=== PATIENT | female | born 1965 | race Caucasian/White ===

== ENCOUNTER 2018-03-25 08:47 | Emergency (ER) | payer OTHER ==
[~2018-03-25] VITALS: Ht 172.7 cm; Wt 66.2 kg
--- NOTE | 2018-03-25 10:14 | ED GI/GU/ABDOMINAL COMPLAINT ---
History of Present Illness General Chief Complaint: Abdominal Pain/Flank Pain Stated Complaint: ABD PAIN Source: patient Exam Limitations: no limitations Vital Signs & Intake/Output Vital Signs & Intake/Output ED Intake and Output 03/26 0000 03/25 1200 Intake Total 1000 Output Total Balance 1000 Intake, IV 1000 Patient 146 lb Weight Weight Reported by Patient Measurement Method Allergies Coded Allergies: Penicillins (RASH 03/25/18) diphenhydramine (From BENADRYL) (UNKNOWN 03/25/18) niacin (FLUSHING 03/25/18) Reconcile Medications Alprazolam 0.5 MG TABLET 1 TAB PO TIDPRN PRN ANXIETY (Reported) Ergocalciferol (Vitamin D2) (Vitamin D2) 50,000 UNIT CAPSULE 1 CAP PO QW VITAMIN SUPPORT (Reported) Estradiol 2 MG TABLET 1 TAB PO DAILY HORMONE (Reported) Fluticasone/Vilanterol (Breo Ellipta 100-25 Mcg INH) 100 MCG-25 MCG/DOSE BLST.W.DEV 1 PUFF PO DAILY BREATHING PROBLEMS (Reported) Levothyroxine Sodium (Synthroid) 25 MCG TABLET 1 TAB PO DAILY AC THYROID ( Reported) Lisdexamfetamine Dimesylate (Vyvanse) 20 MG CAPSULE 1 TAB PO BID MENTAL HEALTH (Reported) Omeprazole 40 MG CAPSULE.DR 1 CAP PO DAILY GI (Reported) Oxycodone HCl/Acetaminophen (Oxycodone-Acetaminophen 10-325) 10 MG-325 MG TABLET 1 TAB PO Q4P PRN PAIN (Reported) Trazodone HCl 50 MG TABLET 1 TAB PO QPM SLEEP (Reported) Triage Note: PT TO ED C/O LOWER ABD PAIN SINCE YESTERDAY. PAIN TODAY IS MORE RLQ THAN LLQ. VOMITED X 1 THIS AM. C/O DIARRHEA. DENIES S/S. Triage Nurses Notes Reviewed? yes ? n Is pt currently ? No Onset: Gradual Duration: day(s): Timing: recent history Quality/Severity: sharpness Severity Numbers: 10 Location: right lower quadrant HPI: 53-year-old female with history of diverticulitis presents emergency department complaining of right lower quadrant abdominal pain beginning yesterday. She states the pain is gradually increasing since yesterday, pain started in LLQ yesterday and migrated to RLQ last night. This morning patient woke up around 3 AM with worsening and severe abdominal pain. Currently abdominal pain described as sharp, 10/10, radiating towards the rectum. Patient also had one episode of nonbilious, nonbloody vomiting and nonbloody diarrhea this morning. Patient ate eggs last night, she has had no appetite today. Patient feels chills however denies fevers. (Ruth Long) Past History Travel History Traveled to [place] past 21 day No Medical History Any Pertinent Medical History? 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 No (Ruth Long) Review of Systems Review of Systems Constitutional: Reports: no symptoms. EENTM: Reports: no symptoms. Respiratory: Reports: no symptoms. Cardiovascular: Reports: no symptoms. GI: Reports: see HPI. Genitourinary: Reports: no symptoms. Musculoskeletal: Reports: no symptoms. Skin: Reports: no symptoms. Neurological/Psychological: Reports: no symptoms. Hematologic/Endocrine: Reports: no symptoms. Immunologic/Allergic: Reports: no symptoms. All Other Systems: Reviewed and Negative (Ruth Long) Physical Exam Physical Exam General Appearance: well developed/nourished, no apparent distress, alert, awake Head: atraumatic, normal appearance Eyes: Bilateral: normal appearance. Ears, Nose, Throat, Mouth: hearing grossly normal Neck: normal inspection, supple, full range of motion Respiratory: normal breath sounds, no respiratory distress, lungs clear Cardiovascular: regular rate/rhythm Gastrointestinal: normal bowel sounds, soft, no organomegaly, Right lower quadrant tenderness with rebound and guarding, left lower quadrant tenderness Back: normal inspection, normal range of motion Extremities: normal range of motion Neurologic/Psych: awake, alert, oriented x 3 Skin: intact, normal color, warm/dry Core Measures ACS in differential dx? No Sepsis Present: No Sepsis Focused Exam Completed? No (Ruth Long) Progress Differential Diagnosis: appendicitis, bowel obstruction, diverticulitis, gastritis, inflamm bowel dis, pancreatitis, SBO, UTI/pyelo Plan of Care: Orders Procedure Date/time Status URINALYSIS 03/25 1014 Complete HIGH SENSITIVITY CRP 03/25 101 Complete COMPREHENSIVE METABOLIC PANEL 03/25 101 Complete CBC WITHOUT DIFFERENTIAL 03/25 101 Complete Laboratory Tests 03/25/18 1150: Urine Color YEL, Urine Clarity CLEAR, Urine pH 6.0, Ur Specific [place] 1.015, Urine Protein NEG, Urine Ketones NEG, Urine Nitrite NEG, Urine Bilirubin NEG, Urine Urobilinogen 0.2, Ur Leukocyte Esterase NEG, Ur Microscopic EXAM NOT REQUIRED, Urine Hemoglobin NEG, Urine Glucose NEG 03/25/18 1028: Anion Gap 7, Estimated GFR > 60, BUN/Creatinine Ratio 18.6, Glucose 94, Calcium 9.6, Total Bilirubin 0.3, AST 18, ALT 27, Alkaline Phosphatase 84, C-React Prot High Sens 1.0, Total Protein 6.7, Albumin 3.8, Globulin 2.9, Albumin/Globulin Ratio 1.3, CBC w Diff NO MAN DIFF REQ, RBC 4.33, MCV 90.2, MCH 30.9, MCHC 34.2, RDW 14.7 H, MPV 7.6, Gran % 68.4, Lymphocytes % 23.0, Monocytes % 5.5, Eosinophils % 2.6, Basophils % 0.5, Absolute Granulocytes 4.7, Absolute Lymphocytes 1.6, Absolute Monocytes 0.4, Absolute Eosinophils 0.2, Absolute Basophils 0 CT scan does not visualize the appendix however no inflammatory findings. Patient's labs are stable, no leukocytosis, no elevated CRP. On repeat abdominal exam the patient still has right lower quadrant tenderness. Given these findings with appendix not visualized on CT scan will obtain surgical consult. 2:09PM - spoke with Dr. Nguyen regarding this patient. I informed Dr. Han of the patient's physical exam findings and that her appendix was not visualized on CT scan. He states that it is very unlikely for appendicitis given her labs and vital signs however will have surgical PA evaluate the patient. The patient was seen and evaluated by surgical PA Nallely. Patient given the option to stay for observation given her abdominal pain however she states she would prefer to go home and follow up with her GI doctor tomorrow. The patient was given strict return precautions which she understands and agrees with. She was offered nausea and pain medications to calm with however she declines. Patient is nontoxic appearing, afebrile. The patient agrees with the plan of care. Dr. Andujar agrees with this plan. Diagnostic Imaging: Viewed by Me: CT Scan. Discussed w/RAD: CT Scan. Radiology Impression: PATIENT: KALYAN OROSCO PRESENT AGE: 53 PATIENT ACCOUNT NO: [id number] : 63 LOCATION: [facility] ORDERING PHYSICIAN: Ruth VELAZQUEZ SERVICE DATE: 03/25/18 EXAM TYPE: CAT - CT ABD & PELVIS W IV CONTRAST EXAMINATION: CT ABDOMEN AND PELVIS WITH CONTRAST CLINICAL INFORMATION: Right lower quadrant abdominal pain. Nausea and vomiting. COMPARISON: CT enterography of 06/18/2017, CT abdomen and pelvis of 08/08/2014, 03/22/2011, 02/21/2011. TECHNIQUE: Multidetector volumetric imaging was performed of the abdomen and pelvis following IV administration of 95 mL of Optiray 320 intravenous contrast. Sagittal and coronal reformatted images were obtained on the technologist's workstation. DLP: 279.53 mGy-cm. FINDINGS: LUNG BASES: An ill-defined ground-glass opacity is noted at the left lung base in the lower lobe anteriorly measuring 1.5 cm in maximum dimension, (series 3 image 12/ [id number]), does not appear to be significantly changed compared to multiple previous studies dated back to 10/08/2010. No pericardial or pleural effusions. LIVER, GALLBLADDER, AND BILIARY TREE: The liver is normal in size, shape, and attenuation. No focal hepatic lesion or biliary ductal dilatation is present. The gallbladder is surgically absent. PANCREAS: Unremarkable. SPLEEN: Unremarkable. ADRENAL GLANDS: Unremarkable. KIDNEYS AND URETERS: The kidneys are normal in size, shape, and attenuation. No hydronephrosis, hydroureter, or calculi seen. No perinephric stranding. BLADDER: Unremarkable. GASTROINTESTINAL TRACT: Postsurgical changes of gastric bypass are seen with gastrojejunostomy and jejunojejunostomy. Additionally, gastric lap band is also in place, similar in position compared to previous study with intact-appearing connecting tubing and port in the subcutaneous tissue of the mid anterior abdominal wall. The stomach is largely decompressed. Small bowel is not dilated. An appendix is not identified; however, there are no inflammatory changes in the expected location of the appendix. The colon is normal in caliber. There is mild diverticulosis of the sigmoid colon and distal descending colon; however, no evidence of acute diverticulitis. No evidence of from chronic wall thickening or pericolonic fat stranding. PERITONEAL CAVITY: No evidence of free intraperitoneal air. Trace free fluid in the pelvis is nonspecific. ABDOMINAL WALL: Gastric lap band port in the subcutaneous tissue of the mid anterior abdominal wall LYMPH NODES: No pathologically enlarged lymph nodes. VASCULAR: Unremarkable. PELVIC VISCERA: The uterus is surgically absent. No adnexal mass. OSSEOUS STRUCTURES: Stable. No acute or suspicious osseous abnormality. Stable moderate anterior wedge compression of T10. Mild degenerative changes are noted in the visualized spine. Stable grade 1 anterolisthesis of L4 over L5. Facet arthropathy at L4-L5 and L5- S1. IMPRESSION: 1. An appendix is not visualized; however, there are no inflammatory changes in the expected location of the appendix. 2. No CT evidence of colitis or acute diverticulitis. 3. Stable postsurgical changes of gastric bypass and gastric lap band placement. 4. No acute or other significant abnormality is identified on this study to explain patient's symptoms. DICTATED BY: Jalen Arce MD DATE/TIME DICTATED:03/25/181223 SPEED BELT SANDER:NANCY DATE/TIME TRANSCRIBED:03/25/181223 CONFIDENTIAL, DO NOT COPY WITHOUT APPROPRIATE AUTHORIZATION. <Electronically signed in Other Vendor System> SIGNED BY: Jalen Arce MD 03/25/18 1250 Initial ED EKG: none (Brandy VELAZQUEZ,Ruth Zarate) Departure Departure Disposition: HOME OR SELF CARE Condition: Stable Clinical Impression Primary Impression: Abdominal pain Qualifiers: Abdominal location: right lower quadrant Qualified Code: R10.31 - Right lower quadrant pain Secondary Impressions: Nausea & vomiting Qualifiers: Vomiting type: unspecified Vomiting Intractability: non-intractable Qualified Code: R11.2 - Nausea with vomiting, unspecified Referrals: Main Santiago MD (PCP/Family) Additional Instructions: Follow-up with Dr. Alegre tomorrow. Return if you have worsening symptoms or concerns. Please note that there might be incidental findings in your evaluation that are unrelated to the current emergency department visit. Please notify your primary care doctor about this emergency department visit in order to obtain and review all of the testing performed so that these incidental findings can be monitored as needed. If you had an x-ray performed, please understand that some fractures may not be seen on the initial set of x-rays. If your symptoms persist you might need a repeat set of x-rays to check for such a fracture. If you had a laceration evaluated, please understand that foreign bodies such as glass or wood may not be visible to the naked eye or on plain x-rays. If the wound becomes red, swollen, increasingly more painful or if there is any drainage from the wound, please have it reevaluated by a physician for the possibility of a retained foreign body. If you're unable to follow up as outlined in the discharge instructions please return to the emergency department. Thank you for choosing the [facility] Emergency Department for your care. It was a pleasure to serve you today. Departure Forms: Customer Survey General Discharge Information (Brandy VELAZQUEZ,Ruth Zarate) PA/GLOVE PARTS INSPECTOR Co-Sign Statement Statement: ED Attending supervision documentation- I saw and evaluated the patient. I have also reviewed all the pertinent lab results and diagnostic results. I agree with the findings and the plan of care as documented in the PA's/GLOVE PARTS INSPECTOR's documentation. x I have reviewed the ED Record and agree with the PA's/GLOVE PARTS INSPECTOR's documentation. [] Additions or exceptions (if any) to the PAs/GLOVE PARTS INSPECTOR's note and plan are summarized below: [] (Pratima SAEZ,Gerber)
[2018-03-25 10:46] LABS: ABSOLUTE BASOPHIL COUNT 0 /CUMM (0.0-0.2); ABSOLUTE EOSINOPHIL COUNT 0.2 /CUMM (0.0-0.7); ABSOLUTE GRANULOCYTE CT 4.7 /CUMM (1.4-6.5); ABSOLUTE LYMPH COUNT 1.6 /CUMM (1.2-3.4); ABSOLUTE MONOCYTE COUNT 0.4 /CUMM (0.10-0.60); BASOPHIL % 0.5 % (0.0-2.0); EOSINOPHIL % 2.6 % (0-5); GRANULOCYTE % 68.4 % (42.2-75.2); HEMATOCRIT 39.1 % (37-47); MEAN CORPUSCULAR HGB 30.9 PG (27.0-31.0); MEAN CORPUSCULAR HGB CONC 34.2 G/DL (33.0-37.0); MEAN CORPUSCULAR VOLUME 90.2 FL (81.0-99.0); MEAN PLATELET VOLUME 7.6 FL (7.4-10.4); PLATELET COUNT 288 /CUMM (130-400); RBC DISTRIBUTION WIDTH 14.7 % (11.5-14.5); RED BLOOD CELL CT 4.33 /CUMM (4.20-5.40); WHITE BLOOD CELL COUNT 6.9 /CUMM (4.8-10.8)
[2018-03-25] MEDS ORDERED: OXYCODONE-ACET1 EAC1 PO (11:23)
[2018-03-25] MEDS ORDERED: ALPRAZOLAM0.5 M4 PO (11:23)
[2018-03-25] MEDS ORDERED: VYVANSE20 M1 PO (11:24)
[2018-03-25] MEDS ORDERED: OMEPRAZOLE40 M1 PO (11:24)
[2018-03-25] MEDS ORDERED: ESTRADIOL2 M1 PO (11:24)
[2018-03-25] MEDS ORDERED: VITAMIN D250000 UNIT PO (11:25)
[2018-03-25] MEDS ORDERED: SYNTHROID25 MCG PO (11:25)
[2018-03-25] MEDS ORDERED: TRAZODONE HCL50 M1 PO (11:26)
[2018-03-25] MEDS ORDERED: BREO ELLIPTA 11 EACH PO (11:26)
--- NOTE | 2018-03-25 12:55 | CT SCAN REPORT ---
EXAMINATION: CT ABDOMEN AND PELVIS WITH CONTRAST CLINICAL INFORMATION: Right lower quadrant abdominal pain. Nausea and vomiting. COMPARISON: CT enterography of 06/18/2017, CT abdomen and pelvis of 08/08/2014, 03/22/2011, 02/21/2011. TECHNIQUE: Multidetector volumetric imaging was performed of the abdomen and pelvis following IV administration of 95 mL of Optiray 320 intravenous contrast. Sagittal and coronal reformatted images were obtained on the technologist's workstation. DLP: 279.53 mGy-cm. FINDINGS: LUNG BASES: An ill-defined ground-glass opacity is noted at the left lung base in the lower lobe anteriorly measuring 1.5 cm in maximum dimension, (series 3 image 12/696), does not appear to be significantly changed compared to multiple previous studies dated back to 10/08/2010. No pericardial or pleural effusions. LIVER, GALLBLADDER, AND BILIARY TREE: The liver is normal in size, shape, and attenuation. No focal hepatic lesion or biliary ductal dilatation is present. The gallbladder is surgically absent. PANCREAS: Unremarkable. SPLEEN: Unremarkable. ADRENAL GLANDS: Unremarkable. KIDNEYS AND URETERS: The kidneys are normal in size, shape, and attenuation. No hydronephrosis, hydroureter, or calculi seen. No perinephric stranding. BLADDER: Unremarkable. GASTROINTESTINAL TRACT: Postsurgical changes of gastric bypass are seen with gastrojejunostomy and jejunojejunostomy. Additionally, gastric lap band is also in place, similar in position compared to previous study with intact-appearing connecting tubing and port in the subcutaneous tissue of the mid anterior abdominal wall. The stomach is largely decompressed. Small bowel is not dilated. An appendix is not identified; however, there are no inflammatory changes in the expected location of the appendix. The colon is normal in caliber. There is mild diverticulosis of the sigmoid colon and distal descending colon; however, no evidence of acute diverticulitis. No evidence of from chronic wall thickening or pericolonic fat stranding. PERITONEAL CAVITY: No evidence of free intraperitoneal air. Trace free fluid in the pelvis is nonspecific. ABDOMINAL WALL: Gastric lap band port in the subcutaneous tissue of the mid anterior abdominal wall LYMPH NODES: No pathologically enlarged lymph nodes. VASCULAR: Unremarkable. PELVIC VISCERA: The uterus is surgically absent. No adnexal mass. OSSEOUS STRUCTURES: Stable. No acute or suspicious osseous abnormality. Stable moderate anterior wedge compression of T10. Mild degenerative changes are noted in the visualized spine. Stable grade 1 anterolisthesis of L4 over L5. Facet arthropathy at L4-L5 and L5-S1. IMPRESSION: 1. An appendix is not visualized; however, there are no inflammatory changes in the expected location of the appendix. 2. No CT evidence of colitis or acute diverticulitis. 3. Stable postsurgical changes of gastric bypass and gastric lap band placement. 4. No acute or other significant abnormality is identified on this study to explain patient's symptoms.
[2018-03-25 13:17] VITALS: BP 124/70
--- NOTE | 2018-03-25 15:29 | Cons- General Surgery ---
Nallely Dill 03/25/18 1511: General Information and HPI Consulting Request Date of Consult: 03/25/18 Requested By: wade VELAZQUEZ Reason for Consult: abd pain for possible appendicitis Source of Information: patient Exam Limitations: no limitations History of Present Illness: 53yo F with hx of IBS, gastric bypass and then lap band presents to ED this morning after starrting with sharp LLQ abdominal pain that started yesterday midday while she was at work. Pain eventually moved to the RLQ over the night. She had decreeased appetite. Denies fevers/chills. This morning pt had one episode on vomiting and diarrhea, greasy appearence, non-bloody. Denies nausea now. Denies Cp/SOB Pt is followed by Dr. Ortiz for her IBS She has previsously had a cholecystectomy, hystorectomy and oophorectomy Allergies/Medications Allergies: Coded Allergies: Penicillins (RASH 03/25/18) diphenhydramine (From BENADRYL) (UNKNOWN 03/25/18) niacin (FLUSHING 03/25/18) Home Med List: Alprazolam 0.5 MG TABLET 1 TAB PO TIDPRN PRN ANXIETY (Reported) Ergocalciferol (Vitamin D2) (Vitamin D2) 50,000 UNIT CAPSULE 1 CAP PO QW VITAMIN SUPPORT (Reported) Estradiol 2 MG TABLET 1 TAB PO DAILY HORMONE (Reported) Fluticasone/Vilanterol (Breo Ellipta 100-25 Mcg INH) 100 MCG-25 MCG/DOSE BLST.W.DEV 1 PUFF PO DAILY BREATHING PROBLEMS (Reported) Levothyroxine Sodium (Synthroid) 25 MCG TABLET 1 TAB PO DAILY AC THYROID ( Reported) Lisdexamfetamine Dimesylate (Vyvanse) 20 MG CAPSULE 1 TAB PO BID MENTAL HEALTH (Reported) Omeprazole 40 MG CAPSULE. 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 Surgical History Pertinent Surgical History: cholecystectomy, hysterectomy, LAP BAND, gastric bypass, oophorectomy Psychosocial History ETOH Use: occasional use Illicit Drug Use: denies illicit drug use Review of Systems Review of Systems: as per HPI Exam & Diagnostic Data Vital Signs and I&O Vital Signs Date Time Temp Pulse Resp B/P B/P Pulse O2 O2 Flow FiO2 Mean Ox Delivery Rate 03/25 1317 98.2 74 18 124/70 99 Room Air 03/25 1048 98.4 70 18 125/82 100 03/25 1037 98 Room Air 03/25 0851 96.4 84 20 159/102 96 Room Air Intake & Output 03/25 1600 03/25 0800 03/25 0000 03/24 1600 03/24 0800 03/24 0000 Intake Total 1000 Output Total Balance 1000 Intake, IV 1000 Patient 146 lb Weight Weight Reported by Patient Measurement Method Physical Exam: gen- NAD resp- clear cardiac- RRR abd- ND, +BS, soft, mildly tender in RLQ. port felt in epigastric area. no gaurding or rebound. +psoas sigh Last 24 Hours of Labs: Laboratory Tests 03/25 03/25 1150 1028 Chemistry Sodium (137 - 145 mmol/L) 140 Potassium (3.5 - 5.1 mmol/L) 4.9 Chloride (98 - 107 mmol/L) 105 Carbon Dioxide (22 - 30 mmol/L) 27 Anion Gap (5 - 16) 7 BUN (7 - 17 mg/dL) 13 Creatinine (0.5 - 1.0 mg/dL) 0.7 Estimated GFR (>60 ml/min) > 60 BUN/Creatinine Ratio (7 - 25 %) 18.6 Glucose (65 - 99 mg/dL) 94 Calcium (8.4 - 10.2 mg/dL) 9.6 Total Bilirubin (0.2 - 1.3 mg/dL) 0.3 AST (14 - 36 U/L) 18 ALT (9 - 52 U/L) 27 Alkaline Phosphatase (<127 U/L) 84 C-React Prot High Sens (1.0 - 3.0 mg/L) 1.0 Total Protein (6.3 - 8.2 g/dL) 6.7 Albumin (3.5 - 5.0 g/dL) 3.8 Globulin (1.9 - 4.2 gm/dL) 2.9 Albumin/Globulin Ratio (1.1 - 2.2 %) 1.3 Hematology CBC w Diff NO MAN DIFF REQ WBC (4.8 - 10.8 /CUMM) 6.9 RBC (4.20 - 5.40 /CUMM) 4.33 Hgb (12.0 - 16.0 G/DL) 13.4 Hct (37 - 47 %) 39.1 MCV (81.0 - 99.0 FL) 90.2 MCH (27.0 - 31.0 PG) 30.9 MCHC (33.0 - 37.0 G/DL) 34.2 RDW (11.5 - 14.5 %) 14.7 H Plt Count (130 - 400 /CUMM) 288 MPV (7.4 - 10.4 FL) 7.6 Gran % (42.2 - 75.2 %) 68.4 Lymphocytes % (20.5 - 51.1 %) 23.0 Monocytes % (1.7 - 9.3 %) 5.5 Eosinophils % (0 - 5 %) 2.6 Basophils % (0.0 - 2.0 %) 0.5 Absolute Granulocytes (1.4 - 6.5 /CUMM) 4.7 Absolute Lymphocytes (1.2 - 3.4 /CUMM) 1.6 Absolute Monocytes (0.10 - 0.60 /CUMM) 0.4 Absolute Eosinophils (0.0 - 0.7 /CUMM) 0.2 Absolute Basophils (0.0 - 0.2 /CUMM) 0 Urines Urine Color (YEL,AMB,STR) YEL Urine Clarity (CLEAR) CLEAR Urine pH (5.0 - 8.0) 6.0 Ur Specific [place] (1.001 - 1.035) 1.015 Urine Protein (NEG,<30 MG/DL) NEG Urine Ketones (NEG) NEG Urine Nitrite (NEG) NEG Urine Bilirubin (NEG) NEG Urine Urobilinogen (0.1 - 1.0 EU/dl) 0.2 Ur Leukocyte Esterase (NEG) NEG Ur Microscopic EXAM NOT REQUIRED Urine Hemoglobin (NEG) NEG Urine Glucose (N MG/DL) NEG Imaging Results: CT abd/pelvis: 1. An appendix is not visualized; however, there are no inflammatory changes in the expected location of the appendix. 2. No CT evidence of colitis or acute diverticulitis. 3. Stable postsurgical changes of gastric bypass and gastric lap band placement. 4. No acute or other significant abnormality is identified on this study to explain patient's symptoms. Assessment/Plan Assessment/Plan 53yo F with hx of IBS, gastic bypass, lap band now here with abd pain. Pt is afebrile, no leukocytosis, no obstructive symptoms, no urinary symptoms and no inflamatory changes appreciated on CT. Discussed with pt the option to either stay for observation for possible early appendicitis or DC to home and FU with her GI physician, Dr Alegre, tomorrow. Pt expressed wanted to not stay overnight and said she will call Dr Alegre office today to make an appointment tomorrow. Pt was given instructiuons to return if she developes a fever >100.4, abd pain worses or has increased nausea and vomiting. pt agreed This was discussed with Dr Arevalo and he agrees with the above plan Consult Acknowledgment - Thank you for your consult request. Irina ADAMSONCuong 03/26/18 1316: Assessment/Plan Consult Acknowledgment - Thank you for your consult request. Attending MD Review Statement Attending Statement Attending MD Statement: discuss w/resident/PA/BOARD LINING MACHINE OPERATOR, agreed w/resident/PA/BOARD LINING MACHINE OPERATOR, reviewed EMR data (avail), reviewed images
== END 2018-03-25 15:30 ==
LOC: ERH 08:47
PROVIDERS: Physician Assistant
DX: R11.2 Nausea with vomiting, unspecified (principal); R10.31 Right lower quadrant pain
CPT/HCPCS: 74177; 81003; 96361; 96374; 96375; J1885; J2405